=== PATIENT | female | born 2005 | race Caucasian/White ===

== ENCOUNTER 2023-12-22 00:59 | Emergency (ER) | payer OTHER ==
[~2023-12-22] VITALS: Ht 170.2 cm; Wt 50.0 kg
[~2023-12-22 00:59] MED LIST: MACROBID 1100 MG/CAP PO
[2023-12-22 01:11] VITALS: TEMP 97.5
[2023-12-22] MEDS ORDERED: Ibuprofen 600 MG TAB PO ONE (01:30)
[2023-12-22] MEDS ORDERED: dexAMETHasone 10 MG/ML VIAL PO ONE (02:45)
[2023-12-22 03:09] VITALS: BP 115/68; PULSE 101
[2023-12-23] MEDS ORDERED: PAXIL 20MG20 MG PO (08:26)
[2023-12-23] MEDS ORDERED: ESKALITH C450 MG/TAB PO (08:26)
[2023-12-23] MEDS ORDERED: TRI-SPRINTEC 281 TAB PO (08:26)
[2023-12-23] MEDS ORDERED: ZOFRAN ODT4 MG PO (09:33)
[2023-12-23] MEDS ORDERED: AMOXICILLIN 8751 TAB PO (09:33)
[2023-12-23] MEDS ORDERED: NORCO 325 MG-51 TAB PO (09:33)
== END 2023-12-22 03:09 | disposition home or self-care (01) ==
LOC: COL.ER 00:59
PROVIDERS: Emergency Medicine
DX: J02.9 Acute pharyngitis, unspecified (principal); B34.9 Viral infection, unspecified
CPT/HCPCS: J1100

== ENCOUNTER 2023-12-23 07:21 | Inpatient (IN) | payer OTHER ==
[~2023-12-23] VITALS: Ht 170.2 cm; Wt 50.0 kg
[2023-12-23] VITALS (8 sets, daily range): BP systolic 94–101; BP diastolic 46–60; PULSE 73–147; TEMP 100–102.6
[2023-12-23] MEDS ORDERED: Ondansetron 4 MG/2 ML VIAL IV ONE (07:45)
[2023-12-23] MEDS ORDERED: LR 1,000 ML IV ONE ×2 (07:45→10:15)
[2023-12-23] MEDS ORDERED: Morphine 4 MG/ML VIAL IV ONE ×3 (08:00→10:15)
[2023-12-23 08:09] LABS: COLLECTION METHOD CLEAN CATCH
[2023-12-23 08:20] LABS: HEMATOCRIT 37.6 % (35.0-45.0); HEMOGLOBIN 12.6 g/dl (12.0-15.0); MEAN CELL VOLUME 89 fl (80.0-95.0); MEAN CORPUSCULAR HEMOGLOBIN 30 pg (26-32); MEAN CORPUSCULAR HGB CONC 34 g/dl (33.0-37.0); MEAN PLATELET VOLUME 9.2 fl (7.4-10.4); PLATELET COUNT 307 K/mm3 (130-400); RED BLOOD COUNT 4.23 M/mm3 (4.10-5.30); REDCELL DISTRIBUTION WIDTH-CV 12.4 % (11.5-14.5)
[2023-12-23] MEDS ORDERED: PAXIL 20MG20 MG PO (08:26)
[2023-12-23] MEDS ORDERED: ESKALITH C450 MG/TAB PO (08:26)
[2023-12-23] MEDS ORDERED: TRI-SPRINTEC 281 TAB PO (08:26)
[2023-12-23 08:34] LABS: BILIRUBIN,TOTAL 0.5 mg/dL (0.2-1.2); C-REACTIVE PROTEIN 21.35 mg/dL (0.00-0.50); CALCIUM 8.7 mg/dL (8.4-10.2); CREATININE, serum 0.81 mg/dL (0.57-1.11); POTASSIUM 3.1 mEq/L (3.5-4.5); TOTAL PROTEIN 6.7 g/dl (6.2-8.1); URINE APPEARANCE TURBID (CLEAR/HAZY); URINE BLOOD 2+ (NEGATIVE); URINE COLOR YELLOW (YELLOW); URINE GLUCOSE NEGATIVE (NEGATIVE); URINE KETONE NEGATIVE (NEGATIVE); URINE NITRATE NEGATIVE (NEGATIVE); URINE PROTEIN(semi-quant) 1+ (NEGATIVE)
[2023-12-23] MEDS ORDERED: Iohexol 300 - 100 ML VIAL IV ONE (08:56)
[2023-12-23] MEDS ORDERED: NS 100 ML IV SCH (08:57)
[2023-12-23 09:05] LABS: BAND 20 % (0-10); LYMPHOCYTE 8 % (20.0-51.0); NEUTROPHILS 70 % (42.0-75.2); PLATELET ESTIMATE NORMAL (NORMAL)
[2023-12-23] MEDS ORDERED: cefTRIAXone 2 G in Water For Injection,Sterile 20 ML IV ONE (09:30)
[2023-12-23] MEDS ORDERED: NORCO 325 MG-51 TAB PO (09:33)
[2023-12-23] MEDS ORDERED: ZOFRAN ODT4 MG PO (09:33)
[2023-12-23] MEDS ORDERED: AMOXICILLIN 8751 TAB PO (09:33)
[2023-12-23] MEDS ORDERED: Acetaminophen 325 MG TAB PO ONE (11:30)
[2023-12-23] MEDS ORDERED: Acetaminophen 500 MG TAB PO PRN (11:45)
[2023-12-23] MEDS ORDERED: Docusate Sodium 100 MG CAP PO PRN (11:45)
[2023-12-23] MEDS ORDERED: NS 1,000 ML IV SCH (11:45)
[2023-12-23] MEDS ORDERED: Ondansetron 4 MG/2 ML VIAL IV PRN (11:45)
[2023-12-23] MEDS ORDERED: cefTRIAXone 1 G in Water For Injection,Sterile 10 ML IV SCH (11:45)
[2023-12-23] MEDS ORDERED: Polyethylene Glycol 3350 17 GM PDS PO PRN (11:45)
[2023-12-23] MEDS ORDERED: Morphine 4 MG/ML VIAL IV PRN (13:15)
--- NOTE | 2023-12-23 13:39 | NUR ---
PATIENT ARRIVED TO FLOOR FROM ED. REMP ELEVATED 1002.0 AND HR 147. PATIENT STATES PAIN 10/10, PAIN MEDS GIVEN ORDERED. ADMISSION, ASSESSMENT AND MED REC COMPLETED. PATIENT HAS NS INFUSIONG AT 150ML/HR TO LEFT AC. CALL LIGHT IN REACH
--- NOTE | 2023-12-23 13:53 | NUR ---
CONTACTED DR. AYALA ABOUT PATIENTS VS. TEMP 102.6, HR 147BPM, BP 97/54. NO NEW ORDERS PLACED AT THIS TIME. DR. AYALA STATED SHE WILL COME SEE PATIENT SOON.
[2023-12-23] MEDS ORDERED: Ketorolac 15 MG/ML VIAL IV ONE (14:45)
--- NOTE | 2023-12-23 16:47 | NUR ---
REPORT RECEIVED FROM JASON. PATIENT VSS. PATIENT DROWSEY BUT A&OX4. PATIENT NOT REPORTING ANY PAIN AT THIS TIME. PATIENT ON THERE WAY UP TO FLOOR.
--- NOTE | 2023-12-23 17:46 | NUR ---
PATIENTS MEWS SCORE 7. CONTACTED HANNA DENIS REPORTED PATIENT STATUS W/ CURRENT VITAL SIGNS. NO NEW ORDERS AT THIS TIME. WILL CONTINUE TO MONITOR.
--- NOTE | 2023-12-23 20:27 | NUR ---
Patient MEWs score down to 4-current temp 100.0, HR 133, BP 101/49, RR 20 and O2 saturation 96%. Both residential housekeeper Felicita and Hospitalist HUGO Frances aware. Report given to JOJO Collier-primary nurse.
[2023-12-23] MEDS ORDERED: Lithium 150 MG CAP PO SCH (21:00)
[2023-12-23] MEDS ORDERED: Famotidine 20 MG TAB PO SCH (21:00)
--- NOTE | 2023-12-23 21:08 | NUR ---
PATIENT RESTING IN BED WITH VISITORS AT BEDSIDE. REPORTING PAIN IN BACK AND ABDOMEN 7/10. CONTINUES TO REPORT NAUSEA AND SOME VOMITING. ASSISTED WITH REPOSITIONING. CALL LIGHT WITHIN REACH. BED IS LOCKED AND IN LOW POSITION
--- NOTE | 2023-12-23 21:38 | NUR ---
Friends of patient-Ellyn stopped by nurses station stating patient has no family support here and that they are friends of the family and would like to list their phone number. This nurse added information to chart after verifying with patient that it was okay. This nurse spoke with patient alone and patient states it is okay to add info to chart and release information as well. Report given to Primary RN Amira.
--- NOTE | 2023-12-23 21:47 | NUR ---
VISITORS THAT CAME TO SEE PATIENT, STATE THEY WERE SENT BY PATIENT'S MOTHER WHO IS STILL HOME IN [place] BUT WOULD LIKE UPDATES. [facility] PATIENT HAD TOLD THEM THAT SHE STARTED FEELING SICK ON WEDNESDAY AND HAS ONLY BEEN IN [place] FOR ABOUT 2 WEEKS. SHE WAS PREVIOUSLY LIVING IN THE [place] OR [facility], HOWEVER FOR SLIGHTLY LESS THAN A YEAR BUT THEY WERE NOT SURE WHEN SHE ORIGINALLY CAME. THEY ARE WANTING TO BE ABLE TO COMMUNICATE UPDATES WITH PATIENT'S MOTHER, PATIENT AGREED TO ALLOW INFORMATION TO BE GIVEN AND PASSED ONTO HER MOM.
[2023-12-24] VITALS (14 sets, daily range): BP systolic 91–118; BP diastolic 51–73; PULSE 110–125; TEMP 98.1–100.3
--- NOTE | 2023-12-24 06:06 | NUR ---
LAB HAD COME TO DRAW PATIENT'S MORNING LABS, HOWEVER WAS UNABLE TO AND REPORTED TO THIS RN THAT PATIENT WAS SHAKING AND REQUESTING TO SPEAK TO HER NURSE. WHEN THIS RN CAME TO ASSESS PATIENT, BOTH ARMS WERE SHAKING AND PATIENT STATED IT WAS DIFFICULT TO BREATHE. STATES SHE FEELS THIS IS DUE TO HER ANXIETY. FULL SET OF VITALS OBTAINED AND DOCUMENTED.
--- NOTE | 2023-12-24 06:27 | NUR ---
PATIENT STATES HER FATHER WILL BE FLYING IN TODAY FROM [place] TO BE WITH HER
--- NOTE | 2023-12-24 07:30 | NUR ---
Patient sitting up in bed, A&Ox4. VSS. HR tachycardic. IV CDI, fluids infusing. Reports shaking, that has been ongoing. Call light within reach
--- NOTE | 2023-12-24 08:15 | NUR ---
MEWS SCORE OF 4 REPORTED TO JOJO VICENTECLEANER AND DYER NOTIFIED.
[2023-12-24] MEDS ORDERED: PARoxetine HCL 10 MG TABLET PO SCH (09:00)
[2023-12-24] MEDS ORDERED: CIPROFLOXACIN 400 MG/200 ML IV SCH (09:00)
[2023-12-24 09:25] LABS: MEAN CELL VOLUME 88 fl (80.0-95.0); MEAN CORPUSCULAR HGB CONC 34 g/dl (33.0-37.0); MEAN PLATELET VOLUME 9.4 fl (7.4-10.4); PLATELET COUNT 253 K/mm3 (130-400); RED BLOOD COUNT 3.56 M/mm3 (4.10-5.30); REDCELL DISTRIBUTION WIDTH-CV 12.5 % (11.5-14.5)
[2023-12-24 09:28] LABS: HEMATOCRIT 31.2 % (35.0-45.0); HEMOGLOBIN 10.5 g/dl (12.0-15.0); MEAN CORPUSCULAR HEMOGLOBIN 29 pg (26-32)
[2023-12-24 09:38] LABS: CALCIUM 7.8 mg/dL (8.4-10.2); CREATININE, serum 0.64 mg/dL (0.57-1.11)
[2023-12-24 10:00] LABS: BAND 18 % (0-10); LYMPHOCYTE 9 % (20.0-51.0); NEUTROPHILS 65 % (42.0-75.2)
[2023-12-24 10:01] LABS: PLATELET ESTIMATE NORMAL (NORMAL)
[2023-12-24] MEDS ORDERED: Azithromycin 250 MG TAB PO ONE (10:15)
[2023-12-24] MEDS ORDERED: NS 1,000 ML IV SCH (10:15)
[2023-12-24] MEDS ORDERED: Azithromycin 500 MG in NS 250 ML IV ONE (11:00)
--- NOTE | 2023-12-24 12:21 | NUR ---
MEWS SCORE 4 REPORTED TO JOJO VICENTEPIPE COVERING MOLDER
--- NOTE | 2023-12-24 12:56 | NUR ---
THIS NURSE IS TAKING OVER CARE. REPORT RECEIVED AND I AGREE W/ SHIFT ASSESSMENT COMPLETED THIS AM.
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
--- NOTE | 2023-12-24 19:52 | NUR ---
Patient assessed at this time, see shift assessment, reports pain to left flank that radiates to the back, IV morphine given, reports having headache will give the tylenol at 1999, still with IV infusing well on left AC, denies nausea, denies further needs, will continue to monitor.
[2023-12-24] MEDS ORDERED: ARIPiprazole 5 MG TAB PO SCH (21:00)
[2023-12-25] VITALS (14 sets, daily range): BP systolic 99–115; BP diastolic 61–76; PULSE 92–117; TEMP 98–99.9
--- NOTE | 2023-12-25 00:45 | NUR ---
Patient still reports nausea, called Lilliam and made him aware, received an order for compazine IV.
--- NOTE | 2023-12-25 01:00 | NUR ---
Patient's MEW score of 3, Bety URIBEcupola charger nurse notified.
--- NOTE | 2023-12-25 01:53 | NUR ---
Rechecked patient's vitals, oxygen saturation of 96%, temp 98.7 and HR of 102, MEW score of 2 at this time, charge nurse updated.
--- NOTE | 2023-12-25 05:59 | NUR ---
Patient reports she's feeling a lot better at this time, denies further needs at this time.
[2023-12-25 06:34] LABS: HEMOGLOBIN 10.4 g/dl (12.0-15.0); MEAN CELL VOLUME 86 fl (80.0-95.0); MEAN CORPUSCULAR HEMOGLOBIN 30 pg (26-32); MEAN CORPUSCULAR HGB CONC 35 g/dl (33.0-37.0); MEAN PLATELET VOLUME 9.1 fl (7.4-10.4); PLATELET COUNT 285 K/mm3 (130-400); RED BLOOD COUNT 3.52 M/mm3 (4.10-5.30); REDCELL DISTRIBUTION WIDTH-CV 12.5 % (11.5-14.5)
--- NOTE | 2023-12-25 06:35 | NUR ---
Patient on 1LPM at this time, 93% oxygen saturation.
[2023-12-25 06:37] LABS: HEMATOCRIT 30.1 % (35.0-45.0)
--- NOTE | 2023-12-25 06:42 | NUR ---
Called Dr. Bates and unable to get a hold of him, left a message for a critical result of WBC 24.
[2023-12-25 06:53] LABS: ANION GAP 8 mmol/L (7-16); CALCIUM 7.6 mg/dL (8.4-10.2); CHLORIDE 111 mEq/L (98-107); CREATININE, serum 0.54 mg/dL (0.57-1.11); GLUCOSE 94 mg/dL (70-99); POTASSIUM 3.4 mEq/L (3.5-4.5); SODIUM 136 mEq/L (136-145)
[2023-12-25 06:54] LABS: BLOOD UREA NITROGEN < 5 mg/dL (7-19)
[2023-12-25 07:01] LABS: BASOPHIL 1 % (0-2); LYMPHOCYTE 19 % (20.0-51.0); NEUTROPHILS 77 % (42.0-75.2)
[2023-12-25 07:03] LABS: DOHLE BODIES PRESENT; PLATELET ESTIMATE NORMAL (NORMAL)
--- NOTE | 2023-12-25 07:21 | NUR ---
Rose ARIAS notified of critical WBC
[2023-12-25] MEDS ORDERED: PARoxetine HCL 10 MG TABLET PO SCH (09:00)
[2023-12-25] MEDS ORDERED: *Potassium Replacement Protocol MC SCH ×2 (11:00→19:30)
--- NOTE | 2023-12-25 11:43 | NUR ---
SHIFT ASSESSMENT COMPLETE. VSS. PATIENT HR SLIGHTLY ELEVATED THIS AM AT 105BPM, BUT HAS IMPROVED DINCE YESTERDAY. PATIENT HAS BEEN AFIBERIL THIS AM AND NO NAUSEA REPORTED. PAIN 2/10 WITH MOVEMENT AND IF PRESSED ON THE UUPER LEFT QUADRANT. DAD IS AT BEDSIDE AND PATIENT IS EAT BREAKFAST. PATIENT HAS NO OTHER NEEDS AT THIS TIME. WE DISCUSSED PATIENT GETTING UP TODAY AND WALKING THE HALLS, PATIENT EXPRESSED UNDERSTANDING. CALL LIGHT IN REACH
--- NOTE | 2023-12-25 13:41 | NUR ---
Data: Patient accepted spiritual care visit offered during Switchboard And Control Room Operator rounds. Patient's Father is visiting from [place]. Life review focused primarily on Patient's college. Assessment: Patient is Jainism and desires information on Jainism services. Would like to speak with a Superintendent Stations when one is available. Plan of Care: Switchboard And Control Room Operator provided supportive listening; prayer; rosaries; and a written mass schedule taken from the internet for the three Jainism Churches in [place]. Called Father Anita who took Patient's name and room number and will arrange a capacitor repairer visit for her. Chaplains will remain available as needed/requested while Patient is admitted to this hospital.
[2023-12-25] MEDS ORDERED: Potassium Bicarbonate/Citrate 20 MEQ Effervescent TAB PO SCH (19:30)
--- NOTE | 2023-12-25 20:56 | NUR ---
Patient called with complaints of nausea after she took a shower, compazine given as ordered PRN,see emar for details, assessed at this time, she also reports back pain and requested for a heating pad, called Juan Daniel, the HUGO and he is okay with it, IV still infusing well on left AC, denies further needs, call light and personal items within reach, will continue to monitor.
[2023-12-26 00:24] VITALS: BP_SYST 114
--- NOTE | 2023-12-26 01:45 | NUR ---
Patient care, medication administration and nursing documentation occured during a Daylight Savings Time Change.
[2023-12-26 04:06] VITALS: BP 113/74; PULSE 87; TEMP 98.1
[2023-12-26 04:29] VITALS: BP_SYST 113
[2023-12-26 05:36] LABS: BASO # 0.1 K/mm3 (0.0-0.2); BASO % 0.5 % (0.0-2.0); EOS # 0.1 K/mm3 (0.0-0.7); EOS % 0.7 % (0.0-4.0); GRAN # 9.1 K/mm3 (1.4-6.5); GRAN % 64.6 % (42.2-75.2); LYMPH # 3.1 K/mm3 (1.2-3.4); LYMPH % 21.6 % (20.0-51.0); MEAN CELL VOLUME 86 fl (80.0-95.0); MEAN CORPUSCULAR HEMOGLOBIN 29 pg (26-32); MEAN CORPUSCULAR HGB CONC 34 g/dl (33.0-37.0); MEAN PLATELET VOLUME 8.8 fl (7.4-10.4); MONO # 1.5 K/mm3 (0.1-0.6); MONO % 10.7 % (1.7-9.3); PLATELET COUNT 300 K/mm3 (130-400); RED BLOOD COUNT 3.75 M/mm3 (4.10-5.30); REDCELL DISTRIBUTION WIDTH-CV 12.6 % (11.5-14.5)
[2023-12-26 05:59] LABS: HEMATOCRIT 32.4 % (35.0-45.0)
[2023-12-26 06:02] LABS: ANION GAP 8 mmol/L (7-16); C-REACTIVE PROTEIN 14.02 mg/dL (0.00-0.50); CALCIUM 8.2 mg/dL (8.4-10.2); CHLORIDE 109 mEq/L (98-107); CREATININE, serum 0.52 mg/dL (0.57-1.11); GLUCOSE 92 mg/dL (70-99); MAGNESIUM 1.7 mg/dL (1.6-2.6); POTASSIUM 3.7 mEq/L (3.5-4.5); SODIUM 136 mEq/L (136-145)
[2023-12-26 06:04] LABS: BLOOD UREA NITROGEN < 5 mg/dL (7-19)
[2023-12-26 06:40] LABS: BAND 1 % (0-10); EOSINOPHIL 1 % (0-4); LYMPHOCYTE 23 % (20.0-51.0); NEUTROPHILS 71 % (42.0-75.2)
[2023-12-26 06:41] LABS: PLATELET ESTIMATE NORMAL (NORMAL)
[2023-12-26 07:44] VITALS: BP 108/64; PULSE 70; TEMP 98.4
[2023-12-26] MEDS ORDERED: Potassium Bicarbonate/Citrate 20 MEQ Effervescent TAB PO SCH (07:45)
[2023-12-26 08:00] VITALS: BP_SYST 108
--- NOTE | 2023-12-26 09:44 | NUR ---
SHIFT ASSESSMENT COMPLETE. PATIENT RESTING IN BED W/ FATHER AT BEDSIDE. VSS. PATIENT STATES SHE IS FEELING BETTER AND FEELS SHE CAN GO HOME TODAY. PATIENT DID STATE HAVING SOME PAIN IN BACK. GAVE TYLENOL ORDERED AND ADVISED PATIENT TO TRY AND GET UP OUT OF BED MORE TODAY. PATIENT GIVEN ANTINAUSEA MEDICATION THIS AM BEFORE POTASSIUM REPLACEMENT GIVEN AND BEFORE BREAKFAST TO PREVENT NAUSEA, MEDICATION CAUSED PATIENT TO DEVELOP SOME WHELPS AND SOME REDNESS TO LOWER LEFT ARM, CONTACT HUGO GARNER AND NO NEW ORDERS AT THIS TIME WHELPS BEGAN TO GO DOWN AND REDNESS BEGAN TO BECOME MORE MILD. WILL CONITNUE TO MONITOR. PATIENT HAS NO OTHER REQUEST AT THIS TIME. CALL LIGHT IN REACH.
[2023-12-26] MEDS ORDERED: CIPRO 500MG TA500 MG PO (10:02)
[2023-12-26] MEDS ORDERED: ZOFRAN ODT4 MG PO (10:11)
[2023-12-26] MEDS ORDERED: ABILIFY5 MG PO (10:12)
[2023-12-26] MEDS ORDERED: PAXIL40 MG PO (10:12)
--- NOTE | 2023-12-26 12:24 | NUR ---
SW called by nurse to provide patient with local resource for PCPs in this area. SW met with patient to provide documentation of primary care providers for choice. Patient had no further questions, comments, nor concerns. SW also asked to assist with faxing discharge paperwork to Psychiatry Dr. Jimenez. [employer] faxed to [phone].
== END 2023-12-26 10:50 | disposition home or self-care (01) | DRG 872 ==
LOC: COL.ER 07:21 → SURG 11:39
PROVIDERS: Family Medicine; Physician Assistant; ADMIT Internal Medicine
DX: A41.9 Sepsis, unspecified organism (principal); N12 Tubulo-interstitial nephritis, not specified as acute or chronic; F60.9 Personality disorder, unspecified; E87.6 Hypokalemia; B96.20 Unspecified Escherichia coli [E. coli] as the cause of diseases classified elsewhere; F17.210 Nicotine dependence, cigarettes, uncomplicated
CPT/HCPCS: J0456; J0696; J0744; J0780; J1650; J1885; J2270; J2405; J7030; J7050; J7120; Q3014; Q9967